=== PATIENT | female | born 1945 | race African-American/Black ===

== ENCOUNTER 2022-01-15 09:33 | Emergency (ER) | payer SELFPAY ==
--- NOTE | 2022-01-15 10:25 | RAD REPORT ---
EXAM DESCRIPTION: CT - Head Brain Wo Cont - 01/15/2022 10:16 am CLINICAL HISTORY: HEADACHE COMPARISON: No comparisons TECHNIQUE: All CT scans are performed using dose optimization technique as appropriate and may inclu de automated exposure control or mA/KV adjustment according to patient size. FINDINGS: No intracranial hemorrhage, hydrocephalus or extra-axial fluid collection.No areas of brai n edema or evidence of midline shift. The paranasal sinuses and mastoids are clear. The calvarium is intact. IMPRESSION: No acute intracranial abnormality.
--- NOTE | 2022-01-15 10:45 | ER ---
Nurse's Notes [facility] Name: Trinidad Schulte Age: 76 yrs Sex: Female : 1945 Arrival Date: 01/15/2022 Time: 09:36 Bed 8 Private MD: Diagnosis: Headache;Other malaise Presentation: 01/15 09:49 Chief complaint: Patient states: ANGLIN's for a few days. Radiates into L eye/ear/jaw. + ll1 nausea. No fever. Reports numbness to L arm and both feet int. for 1+ weeks. Coronavirus screen: Vaccine status: Patient reports receiving the 2nd dose of the covid vaccine. Client denies travel out of the [place] in the last 14 days. At this time, the client does not indicate any symptoms associated with coronavirus-19. Ebola Screen: Patient denies travel to an Ebola-affected area in the 21 days before illness onset. Initial Sepsis Screen: Does the patient meet any 2 criteria? No. Patient's initial sepsis screen is negative. Does the patient have a suspected source of infection? Yes: Bone or joint infection. Risk Assessment: Do you want to hurt yourself or someone else? Patient reports no desire to harm self or others. Onset of symptoms was January 13, 2022. 09:49 Method Of Arrival: Wheelchair ll1 09:49 Acuity: KIARA 3 ll1 Triage Assessment: 10:00 Headache History: The patient has had previous headaches and this one is similar to ap3 previous episodes. General: Appears in no apparent distress. Behavior is calm, cooperative. Pain: Complains of pain in left ear and face Pain currently is 4 out of 10 on a pain scale. Is intermittent, Also complains of sleeplessness. Pain: Neuro: Level of Consciousness is awake, alert, obeys commands. Historical: - Allergies: 10:03 No Known Allergies; ll1 - PMHx: 10:03 Hypertensive disorder; kidney disease; ll1 - PSHx: 10:03 section; ll1 - Immunization history:: Client reports receiving the 2nd dose of the Covid vaccine. - Social history:: Smoking status: Patient denies any tobacco usage or history of. - Family history:: not pertinent. - Hospitalizations: : No recent hospitalization is reported. Screenin:00 Abuse screen: Denies threats or abuse. Nutritional screening: No deficits noted. ap3 Tuberculosis screening: No symptoms or risk factors identified. Fall Risk None identified. Assessment: 09:59 General: Appears comfortable, Behavior is calm, cooperative. Pain: Complains of pain in ap3 face and left ear Pain began gradually, approx 2 weeks ago Is intermittent. Neuro: Level of Consciousness is awake, alert, obeys commands, Oriented to person, place, time, situation, Appropriate for age Speech is normal. Cardiovascular: Patient's skin is warm and dry. Respiratory: Airway is patent Respiratory effort is even, unlabored. EENT:. Vital Signs: 09:49 BP 163 / 66; Pulse 65; Resp 18; Temp 97.7; Pulse Ox 98% ; Weight 88 kg; Height 5 ft. 3 ll1 in. (160.02 cm); Pain 5/10; 09:49 Body Mass Index 34.37 (88.00 kg, 160.02 cm) ll1 Mary Coma Score: 10:43 Eye Response: spontaneous(4). Verbal Response: oriented(5). Motor Response: obeys rn commands(6). Total: 15. ED Course: 09:36 Patient arrived in ED. kz 09:40 Arm band placed on Patient placed in an exam room, on a stretcher. ll1 09:43 Shyam Morgan MD is Attending Physician. rn 09:51 Triage completed. ll1 09:59 Jennifer Jennings, RN is Primary Nurse. ap3 10:01 Patient has correct armband on for positive identification. Bed in low position. Call ap3 light in reach. Side rails up X 1. Adult w/ patient. Pulse ox on. NIBP on. Door closed. Noise minimized. 10:18 CT Head Brain wo Cont In Process Unspecified. EDMS 11:07 No provider procedures requiring assistance completed. Patient did not have IV access ss during this emergency room visit. Administered Medications: 11:06 Drug: predniSONE 60 mg Route: PO; rn 11:06 Follow up: Response: No adverse reaction; Medication administered at discharge. rn 11:06 Drug: traMADol 50 mg Route: PO; rn 11:06 Follow up: Response: No adverse reaction; Medication administered at discharge. rn Outcome: 10:44 Discharge ordered by . rn 11:07 Discharged to home ambulatory, with family. ss 11:07 Condition: good 11:07 Discharge instructions given to patient, family, Instructed on discharge instructions, follow up and referral plans. medication usage, Demonstrated understanding of instructions, follow-up care, medications, Prescriptions given X 3. 11:07 Patient left the ED. ss Signatures: Dispatcher [employer] EDMS Shyam Morgan MD MD rn Smirch, Shelby, RN RN ss Jennifer Jennings RN RN [id number] Toshia Hopkins RN RN ll1 Ijeoma Vee
--- NOTE | 2022-01-15 10:45 | EDPHYS ---
Physician Documentation [facility] Name: Trinidad Schulte Age: 76 yrs Sex: Female : 1945 Arrival Date: 01/15/2022 Time: 09:36 Bed 8 Private MD: ED Physician Shyam Morgan HPI: 01/15 09:59 This 76 yrs old Female presents to ER via Wheelchair with complaints of Headache, Ear rn Pain - Left. 09:59 The patient complains of pain to the top of head and forehead. The patient describes rn the headache as aching, "numb". Onset: The symptoms/episode began/occurred 5 day(s) ago. Associated signs and symptoms: Pertinent positives: malaise, trouble sleeping, left ear pain, acid reflux. Severity of symptoms: At its worst the pain was mild, in the emergency department the pain has improved. Headache History: Denies prior headaches. The symptoms are alleviated by nothing. the symptoms are aggravated by nothing. The patient has not experienced similar symptoms in the past. The patient has not recently seen a physician. Pt reports approx 4-5 days of headache, frontal and top of head, no trauma or fall. Reports left earache, malaise, trouble sleeping. Reports of brother recently and thinks might be causing some of this. Denies focal weakness. Reports her symptoms come and go, currently feels fine. Denies loss of vision. No chest pain or sob. Also requesting refill of her sleep medication as she forgot it at home. . Historical: - Allergies: 10:03 No Known Allergies; ll1 - PMHx: 10:03 Hypertensive disorder; kidney disease; ll1 - PSHx: 10:03 section; ll1 - Immunization history:: Client reports receiving the 2nd dose of the Covid vaccine. - Social history:: Smoking status: Patient denies any tobacco usage or history of. - Family history:: not pertinent. - Hospitalizations: : No recent hospitalization is reported. ROS: 09:59 Constitutional: Negative for fever, chills, and weight loss, Eyes: Negative for injury, rn pain, redness, and discharge, ENT: Negative for injury, pain, and discharge, Neck: Negative for injury, pain, and swelling, Cardiovascular: Negative for chest pain, palpitations, and edema, Respiratory: Negative for shortness of breath, cough, wheezing, and pleuritic chest pain, Abdomen/GI: Negative for abdominal pain, nausea, vomiting, diarrhea, and constipation, Back: Negative for injury and pain, : Negative for injury, bleeding, discharge, and swelling, MS/Extremity: Negative for injury and deformity, Skin: Negative for injury, rash, and discoloration, Neuro: + headache Exam: 09:59 Constitutional: This is a well developed, well nourished patient who is awake, alert, rn and in no acute distress. Head/Face: Normocephalic, atraumatic. Eyes: Pupils equal round and reactive to light, extra-ocular motions intact. Lids and lashes normal. Conjunctiva and sclera are non-icteric and not injected. Cornea within normal limits. Periorbital areas with no swelling, redness, or edema. ENT: dry MM, dry wax in left ear canal, no lesions or blisters, no swelling Neck: Trachea midline, no masses palpated, and no cervical lymphadenopathy. Supple, full range of motion without nuchal rigidity, or vertebral point tenderness. No Meningismus. Cardiovascular: Regular rate and rhythm. No pulse deficits. Respiratory: No increased work of breathing, no retractions or nasal flaring. Skin: Warm, dry with normal turgor. Normal color with no rashes, no lesions, and no evidence of cellulitis. MS/ Extremity: Pulses equal, no cyanosis. Neurovascular intact. Full, normal range of motion. Equal circumference. Neuro: Awake and alert, GCS 15, oriented to person, place, time, and situation. Cranial nerves II-XII grossly intact. Motor strength 5/5 in all extremities. Sensory grossly intact. Cerebellar exam normal. No tenderness at either latter day. Vital Signs: 09:49 BP 163 / 66; Pulse 65; Resp 18; Temp 97.7; Pulse Ox 98% ; Weight 88 kg; Height 5 ft. 3 ll1 in. (160.02 cm); Pain 5/10; 09:49 Body Mass Index 34.37 (88.00 kg, 160.02 cm) ll1 Mary Coma Score: 10:43 Eye Response: spontaneous(4). Verbal Response: oriented(5). Motor Response: obeys rn commands(6). Total: 15. MDM: 09:43 Patient medically screened. rn 10:43 Differential diagnosis: hypertensive headache, intracerebral hemorrhage, migraine, rn neoplasm, tension headache, trigeminal neuralgia, vasomotor headache. Data reviewed: vital signs, nurses notes, radiologic studies, CT scan, and as a result, I will discharge patient. Counseling: I had a detailed discussion with the patient and/or guardian regarding: the historical points, exam findings, and any diagnostic results supporting the discharge/admit diagnosis, radiology results, the need for outpatient follow up, to return to the emergency department if symptoms worsen or persist or if there are any questions or concerns that arise at home. Special discussion: I discussed with the patient/guardian in detail that at this point there is no indication for admission to the hospital. It is understood, however, that if the symptoms persist or worsen the patient needs to return immediately for re-evaluation. Based on the history and exam findings, there is no indication for further emergent testing or inpatient evaluation. I discussed with the patient/guardian the need to see the neurologist for further evaluation of the symptoms. 01/15 09:58 Order name: CT Head Brain wo Cont; Complete Time: 10:43 rn Administered Medications: 11:06 Drug: predniSONE 60 mg Route: PO; rn 11:06 Follow up: Response: No adverse reaction; Medication administered at discharge. rn 11:06 Drug: traMADol 50 mg Route: PO; rn 11:06 Follow up: Response: No adverse reaction; Medication administered at discharge. rn Disposition Summary: 01/15/22 10:44 Discharge Ordered Location: Home rn Problem: new rn Symptoms: have improved rn Condition: Stable rn Diagnosis - Headache rn - Other malaise rn Followup: rn - With: Private Physician - When: As needed - Reason: Recheck today's complaints, Re-evaluation by your physician Discharge Instructions: - Discharge Summary Sheet rn - General Headache Without Cause rn Forms: - Medication Reconciliation Form rn - Thank You Letter rn - Antibiotic intern product marketing manager - Prescription Opioid Use rn Prescriptions: - Tramadol 50 mg Oral Tablet - take 1 tablet by ORAL route every 8 hours as needed; 12 tablet; Refills: 0, rn Product Selection Permitted - trazodone 50 mg Oral tablet - take 1 tablet by ORAL route once daily at bedtime; 10 tablet; Refills: 0, rn Product Selection Permitted - Medrol (Ilan) 4 mg Oral Tablets, Dose Pack - take 1 tablet by ORAL route as directed - follow package instructions; 1 rn packet; Refills: 0, Product Selection Permitted Signatures: Dispatcher [employer] Shyam Aceves MD MD rn Toshia Hopkins RN RN ll1
[2022-01-15] MEDS ORDERED: TRAMADOL HCL 50 MG TAB ONE (11:04)
[2022-01-15] MEDS ORDERED: predniSONE 20 MG TAB ONE (11:04)
[2022-01-15 11:11] VITALS: BP 163/66; TEMP 97.7; O2SAT 98
== END 2022-01-15 11:07 | disposition home or self-care (01) ==
LOC: ER 09:33
DX: R51.9 Headache, unspecified (principal); R53.81 Other malaise; I10 Essential (primary) hypertension; N28.9 Disorder of kidney and ureter, unspecified
CPT/HCPCS: 70450; 99284; J7512